=== PATIENT | female | born 1980 | race African-American/Black ===

== ENCOUNTER → 2025-04-28 | Day surgery (SDC) | payer OTHER ==
[~2025-04-28] MED LIST: ADVAIR DISKUS INH; ARAVA20 MG PO; BENICAR20 MG PO; LACTATED RINGER'S 1,000 ML ONE; LIDOCAINE HCL 2% LOCAL INJ 5 ML SDV VIAL INJ ONE; METFORMIN HCL500 MG PO; METHOTREXATE2.5 MG PO; MIDAZOLAM HCL 2 MG/2 ML VIAL ONE; MOUNJARO12.5 MG/0. SQ; NEXIUM40 MG PO; PROPOFOL IV EMULSION 10 MG/ML 20 ML VIAL ONE; SINGULAIR10 MG PO; XOLAIR150 MG IM
[2025-04-28 15:17] VITALS: TEMP 98.6
[2025-04-28 15:40] VITALS: BP 128/84; PULSE 75; RESP 18; O2SAT 99
== END | disposition home or self-care (01) ==
LOC: OR 13:19
PROVIDERS: ATTEND Internal Medicine Gastroenterology
DX: Z12.11 Encounter for screening for malignant neoplasm of colon (principal); K57.30 Diverticulosis of large intestine without perforation or abscess without bleeding; K62.5 Hemorrhage of anus and rectum; K64.1 Second degree hemorrhoids; K21.9 Gastro-esophageal reflux disease without esophagitis; Z87.19 Personal history of other diseases of the digestive system; D64.9 Anemia, unspecified; I10 Essential (primary) hypertension; E03.9 Hypothyroidism, unspecified; E28.2 Polycystic ovarian syndrome; E66.01 Morbid (severe) obesity due to excess calories; J45.909 Unspecified asthma, uncomplicated; M06.9 Rheumatoid arthritis, unspecified; Z88.1 Allergy status to other antibiotic agents; Z88.0 Allergy status to penicillin; Z88.2 Allergy status to sulfonamides; Z88.8 Allergy status to other drugs, medicaments and biological substances; Z79.84 Long term (current) use of oral hypoglycemic drugs; Z79.899 Other long term (current) drug therapy; Z68.43 Body mass index [BMI] 50.0-59.9, adult
CPT/HCPCS: 45378; J2003; J2250; J2704; J7121